=== PATIENT | male | born 1990 | race Caucasian/White ===

== ENCOUNTER 2018-09-18 08:16 | Emergency (ER) | payer OTHER ==
[2018-09-18] MEDS ORDERED: METHOCARBAMOL 500 MG TABLET PO ONE (09:04)
[2018-09-18] MEDS ORDERED: IBUPROFEN 800 MG TABLET PO ONE (09:04)
--- NOTE | 2018-09-18 10:01 | ER Document Report ---
HPI - HPI Time Seen by Provider: 09/18/18 08:57 Pain Level: 5 Notes: Patient is a 28-year-old male who presents to the emergency department with a chief complaint of low back pain. Patient states that yesterday around 7 PM he was at the gym squatting when he went to squat down and felt a pain in his right lower back. Patient stated that it felt like a pulled muscle. She denies hearing a pop or noise while squatting. Patient denies numbness or tingling to lower extremities. Patient denies loss of bowel or bladder. States that he was sore last night but after waking from sleep this morning he felt stiff. Patient denies radiation of his pain. States that the pain is worse with movement and bending over. Patient has not taken anything for his discomfort. - NEURO Neurology: DENIES: Headache, Weakness, Vision blurred, Dizzinesss / Vertigo Past Medical History - General Information source: Patient - Social History Smoking Status: Never Smoker Chew tobacco use (# tins/day): No Frequency of alcohol use: Occasional Drug Abuse: None Lives with: Family Family History: None Patient has suicidal ideation: No Patient has homicidal ideation: No - Past Medical History Cardiac Medical History: Reports: None Pulmonary Medical History: Reports: None EENT Medical History: Reports: None Neurological Medical History: Reports: None Endocrine Medical History: Reports: None Renal/ Medical History: Reports: None. Denies: Hx Peritoneal Dialysis Malignancy Medical History: Reports None GI Medical History: Reports: None Musculoskeletal Medical History: Reports None Skin Medical History: Reports None Psychiatric Medical History: Reports: None Traumatic Medical History: Reports: None Infectious Medical History: Reports: None Surgical Hx: Negative Past Surgical History: Reports: None Vertical Provider Document - CONSTITUTIONAL Agree With Documented VS: Yes Exam Limitations: No Limitations General Appearance: Mild Distress - INFECTION CONTROL TRAVEL OUTSIDE OF THE [place] IN LAST 30 DAYS: No - HEENT HEENT: Atraumatic, Normocephalic - RESPIRATORY Respiratory: Breath Sounds Normal, No Respiratory Distress - CARDIOVASCULAR Cardiovascular: Regular Rate, Regular Rhythm - GI/ABDOMEN Gastrointestinal: Abdomen Soft, Abdomen Non-Tender - BACK Notes: 5 out of 5 strength both distally and proximally bilateral lower extremities. Sensation grossly intact in the bilateral lower extremities. Patient is able to ambulate without difficulty. Small amount of tenderness with palpation to right lower back over the thoracolumbar fascia. No saddle anesthesia. No obvious bruising or swelling to the site. No lumbar, thoracic, cervical spinal pain with palpation. - NEURO Level of Consciousness: Awake, Alert, Appropriate - DERM Integumentary: Warm, Dry, No Rash Course - Re-evaluation Re-evalutation: 09/18/18 10:02 After receiving Robaxin and Motrin patient reports feeling much better, he states that he can move around easier. Patient in no acute distress. States he feels comfortable being discharge. Patient placed on strict return precautions and to take rest from the gym until symptoms improved. - Vital Signs Vital signs: Temp Pulse Resp BP Pulse Ox 97.7 F 58 L 16 137/70 H 98 09/18/18 08:21 09/18/18 08:21 09/18/18 08:21 09/18/18 08:21 09/18/18 08:21 Discharge - Discharge Clinical Impression: Thoracolumbar back pain Condition: Stable Disposition: HOME, SELF-CARE Instructions: Low Back Pain ([facility]), Muscle Strain ([facility]), Warm Packs ([facility]) Additional Instructions: Today you were seen in the emergency department for back pain after squatting at the gym. You were given a muscle relaxer called Robaxin as well as ibuprofen which is an anti-inflammatory. You have reported that these 2 medications have decreased your pain and you feel better. I will prescribe you these medications to take as needed for discomfort. *You have been evaluated for back pain *Take medication as prescribed *Rest/Ice- heat as directed *Follow up with a primary care provider *Return to ED for worsening condition, changes, needs Muscle Strain You have strained a muscle -- torn the fibers within the muscle. This often occurs with strenuous exertion, or during an injury that suddenly stretches the muscle. The seriousness of a strain varies. Some strains heal within days, others cause problems for months. X-rays cannot show a muscle strain. X-rays are taken only if symptoms sugg est that a fracture could be present. The usual treatment of a muscle strain is rest and ice packs. Sometimes, a sling, splint, or crutches may be necessary to rest the muscle. The muscle can be used again once pain subsides. Severe strains require a special exercise and stretching program to prevent permanent stiffness and disability. Your doctor will advise you if this will be necessary. Call the doctor immediately if pain or swelling becomes severe, or if numbness or discoloration develop. Prescriptions: Ibuprofen [Motrin 600 Mg Tablet] 800 mg PO TID #15 tablet Methocarbamol [Robaxin 750 mg Tablet] 1,000 mg PO QID PRN #20 tablet PRN Reason: Referrals: [facility] [Primary [facility]] - Follow up as needed
[2018-09-18 10:23] VITALS: BP 136/76
== END 2018-09-18 10:23 | disposition home or self-care (01) ==
LOC: ER 08:16
DX: M54.5 Low back pain (principal); M54.6 Pain in thoracic spine
CPT/HCPCS: 99283